=== PATIENT | male | born 2000 | race Hispanic/Latino ===

== ENCOUNTER 2022-11-08 21:01 | Emergency (ER) | payer MEDICAID ==
[~2022-11-08] VITALS: Ht 182.9 cm; Wt 88.9 kg
[2022-11-08] MEDS ORDERED: CEPH500T PO (21:55)
[2022-11-08] MEDS ORDERED: IBUP-2071 PO (21:55)
[2022-11-08 22:47] VITALS: BP 121/72
== END 2022-11-08 22:54 | disposition home or self-care (01) ==
LOC: EDH 21:01
DX: S61.210A Laceration without foreign body of right index finger without damage to nail, initial encounter (principal); S61.214A Laceration without foreign body of right ring finger without damage to nail, initial encounter; Z79.899 Other long term (current) drug therapy; X58.XXXA Exposure to other specified factors, initial encounter; Y93.89 Activity, other specified; Y92.89 Other specified places as the place of occurrence of the external cause; Y99.8 Other external cause status
CPT/HCPCS: 73130

== ENCOUNTER 2022-11-09 02:01 | Emergency (ER) | payer MEDICAID ==
[~2022-11-09] VITALS: Ht 182.9 cm; Wt 88.9 kg
[~2022-11-09 02:01] MED LIST: CEPH500T PO; IBUP-2071 PO
[2022-11-09 03:40] VITALS: BP 123/71
== END 2022-11-09 03:50 | disposition home or self-care (01) ==
LOC: EDH 02:01
DX: S61.216A Laceration without foreign body of right little finger without damage to nail, initial encounter (principal); S61.214A Laceration without foreign body of right ring finger without damage to nail, initial encounter; X58.XXXA Exposure to other specified factors, initial encounter; Y93.89 Activity, other specified; Y92.89 Other specified places as the place of occurrence of the external cause; Y99.8 Other external cause status
CPT/HCPCS: 12002; 99282